=== PATIENT | male | born 1975 | race Caucasian/White ===

== ENCOUNTER 2021-03-24 10:09 | Inpatient (IN) | payer BC ==
[~2021-03-24] VITALS: Ht 175.3 cm; Wt 120.2 kg
[~2021-03-24 10:09] MED LIST: AUGMENTIN 875-1 EACH PO; ZOFRAN4 MG PO
[2021-03-24 11:40] LABS: HEMOGLOBIN 14.5 gm/dl (14.0-17.5); RED BLOOD COUNT 5.06 M/UL (4.20-5.50); WHITE BLOOD COUNT 10.6 K/UL (4.5-11.0)
[2021-03-24 12:00] LABS: BUN/CREATININE RATIO 13 (0-10)
[2021-03-25 05:37] LABS: HEMOGLOBIN 13.2 gm/dl (14.0-17.5)
[2021-03-25 05:38] LABS: RED BLOOD COUNT 4.5 M/UL (4.20-5.50)
[2021-03-25 05:58] LABS: BUN/CREATININE RATIO 23 (0-10)
[2021-03-25] MEDS ORDERED: PROMETHAZINE-D473 M1 PO (14:33)
[2021-03-25] MEDS ORDERED: TYLENOL EXTRA500 MG PO (14:34)
[2021-03-25] MEDS ORDERED: PROAIR DIGIHAL90 MCG INH (14:34)
[2021-03-25] MEDS ORDERED: FAMOTIDINE20 MG PO (14:35)
[2021-03-25] MEDS ORDERED: ATENOLOL25 MG PO (14:35)
[2021-03-25] MEDS ORDERED: IBU800 MG PO (14:36)
[2021-03-25] MEDS ORDERED: ROBAXIN 750 MG750 MG PO (14:37)
[2021-03-25] MEDS ORDERED: SINGULAIR10 MG PO (14:37)
[2021-03-25] MEDS ORDERED: PRAVASTATIN SOD40 MG PO (14:37)
[2021-03-25] MEDS ORDERED: RIZATRIPTAN10 MG PO (14:38)
[2021-03-25] MEDS ORDERED: TOPIRAMATE100 MG PO (14:38)
[2021-03-25] MEDS ORDERED: SERTRALINE HCL25 MG PO (14:38)
[2021-03-25] MEDS ORDERED: TRAZODONE HCL50 MG PO (14:39)
[2021-03-25] MEDS ORDERED: VITAMIN D21250 MCG PO (14:40)
[2021-03-25] MEDS ORDERED: OMEGA-31000 MG PO (14:41)
[2021-03-25] MEDS ORDERED: OMEPRAZOLE20 MG PO (14:41)
[2021-03-25] MEDS ORDERED: FLONASE ALLER15.8 ML (14:41)
[2021-03-25] MEDS ORDERED: FEXOFENADINE H180 MG PO (14:42)
[2021-03-26 05:29] LABS: BUN/CREATININE RATIO 25 (0-10)
--- NOTE | 2021-03-26 12:47 | NUR ---
DR. DENNISON IS PCP
[2021-03-27 07:21] LABS: HEMOGLOBIN 11.6 gm/dl (14.0-17.5); RED BLOOD COUNT 4.11 M/UL (4.20-5.50)
[2021-03-27 07:27] LABS: WHITE BLOOD COUNT 12.4 K/UL (4.5-11.0)
[2021-03-27 08:00] LABS: BUN/CREATININE RATIO 21 (0-10)
[2021-03-27] MEDS ORDERED: ELIQUIS 2.5 MG2.5 MG PO (18:22)
[2021-03-28 08:25] LABS: BUN/CREATININE RATIO 15 (0-10)
== END 2021-03-28 19:00 | disposition home or self-care (01) | DRG 177 ==
LOC: ER1 10:09 → MED SURG 4 03-25 04:05 → CDU 03-25 04:05 → MED SURG 4 03-26 16:59
PROVIDERS: Physician Assistant; ADMIT Internal Medicine
PROC: 8E0ZXY6 Isolation (ICD-10-PCS; principal; 2021-03-25)
PROC: 3E0333Z Introduction of Anti-inflammatory into Peripheral Vein, Percutaneous Approach (ICD-10-PCS; 2021-03-25)
PROC: XW033E5 Introduction of Remdesivir Anti-infective into Peripheral Vein, Percutaneous Approach, New Technology Group 5 (ICD-10-PCS; 2021-03-25)
DX: U07.1 COVID-19 (principal); J12.82 Pneumonia due to coronavirus disease 2019; J96.01 Acute respiratory failure with hypoxia; E87.1 Hypo-osmolality and hyponatremia; E78.5 Hyperlipidemia, unspecified; I10 Essential (primary) hypertension; E87.6 Hypokalemia; G43.909 Migraine, unspecified, not intractable, without status migrainosus; Z98.890 Other specified postprocedural states; Z90.49 Acquired absence of other specified parts of digestive tract; Z79.899 Other long term (current) drug therapy
CPT/HCPCS: 36415; 36600; 71045; 80048; 80053; 82550; 82553; 82803; 82962; 83036; 83615; 83735; 83874; 84484; 85025; 85027; 86140; 86900; 86901; 86927; 93005; 94664; 94760; 96374; 99285; G0378; J1100; J1650; J7030

== ENCOUNTER → 2021-04-08 | Outpatient (CLI) | payer BC ==
[~2021-04-08] MED LIST changes: +ATENOLOL25 MG PO; +ELIQUIS 2.5 MG2.5 MG PO; +FAMOTIDINE20 MG PO; +FEXOFENADINE H180 MG PO; +FLONASE ALLER15.8 ML; +IBU800 MG PO; +OMEGA-31000 MG PO; +OMEPRAZOLE20 MG PO; +PRAVASTATIN SOD40 MG PO; +PROAIR DIGIHAL90 MCG INH; +PROMETHAZINE-D473 M1 PO; +RIZATRIPTAN10 MG PO; +ROBAXIN 750 MG750 MG PO; +SERTRALINE HCL25 MG PO; +SINGULAIR10 MG PO; +TOPIRAMATE100 MG PO; +TRAZODONE HCL50 MG PO; +TYLENOL EXTRA500 MG PO; +VITAMIN D21250 MCG PO
== END ==
LOC: KOH-I 09:51
DX: J12.82 Pneumonia due to coronavirus disease 2019 (principal)
CPT/HCPCS: 71046

== ENCOUNTER → 2021-04-22 | Outpatient (CLI) | payer BC | LOC: HEART 5 14:12 | DX: J18.9 Pneumonia, unspecified organism (principal); B94.8 Sequelae of other specified infectious and parasitic diseases; J84.9 Interstitial pulmonary disease, unspecified; R94.2 Abnormal results of pulmonary function studies | CPT/HCPCS: 71046; 94060; 94729 ==